=== PATIENT | male | born 1990 | race Caucasian/White ===

== ENCOUNTER 2017-08-12 15:29 | Emergency (ER) | payer OTHER ==
[~2017-08-12] VITALS: Ht 185.4 cm; Wt 67.0 kg
[2017-08-12] MEDS ORDERED: BACTRIM,SEPT1 TABLET PO (18:28)
[2017-08-12] MEDS ORDERED: KEFLEX500 MG PO (18:28)
[2017-08-12 18:43] VITALS: BP 107/62
== END 2017-08-12 18:43 | disposition home or self-care (01) ==
LOC: EME 15:29
PROC: 0H9MXZZ Drainage of Right Foot Skin, External Approach (ICD-10-PCS; principal; 2017-08-12)
DX: L03.031 Cellulitis of right toe (principal); F17.210 Nicotine dependence, cigarettes, uncomplicated
CPT/HCPCS: 99281; 99284